=== PATIENT | female | born 1985 | race Caucasian/White ===

== ENCOUNTER 2024-04-12 23:12 | Inpatient (IN) | payer SELFPAY ==
[2024-04-13] MEDS ORDERED: Sodium Chloride 0.9% 10 ML Syringe FLUSH PRN ×2 (00:03→02:15)
[2024-04-13 00:10] LABS: BASOPHILS PERCENT AUTO 0.3 % (0.0-1.0); HEMATOCRIT 36.2 % (37.0-47.0); HEMOGLOBIN 12.4 g/dL (12.0-16.0); LYMPHOCYTES PERCENT AUTO 13.4 % (20.5-50.1); MEAN CORPUSCULAR HEMOGLOBIN 30.4 pg (27.0-34.0); MEAN CORPUSCULAR HGB CONC 34.3 g/dL (33.0-35.0); MEAN CORPUSCULAR VOLUME 88.7 fL (80-100); NEUTROPHILS PERCENT AUTO 78.3 % (42.2-75.2); PLATELET COUNT,PLT 247 10^3/uL (150-450); RED BLOOD CELL COUNT 4.08 10^6/uL (4.2-5.4); WHITE BLOOD CELL COUNT,WBC 14.8 10^3/uL (5.0-10.0)
[2024-04-13 00:21] LABS: A/G RATIO 1.2; ALBUMIN 3.7 g/dL (3.4-5.0); ANION GAP 11.5 mEq/L (7-13); BILIRUBIN TOTAL 0.5 mg/dL (0.2-1.0); BUN/CREATININE RATIO 19.1 (No establ ref range); CALCIUM 8.6 mg/dL (8.5-10.1); CREATININE 0.68 mg/dL (0.55-1.02); EST CRCL DRUG DOSING (CG) 108.01 mL/min; POTASSIUM,K 3.5 mmol/L (3.5-5.1); PROTEIN TOTAL,TP 6.8 g/dL (6.4-8.2)
[2024-04-13] MEDS: Lactated Ringers 1,000 ML IV ONE (00:27)
[2024-04-13] MEDS: Acetaminophen 500 MG Tab PO ONE ×3 (02:31→16:32)
[2024-04-13] MEDS ORDERED: LORazepam 2 MG/ML SDV IVPUSH PRN (02:39)
[2024-04-13] MEDS ORDERED: Naloxone 2 MG/2 ML Syringe IVPUSH PRN (02:40)
[2024-04-13] MEDS ORDERED: Morphine 2 MG/ML SYRINGE IVPUSH PRN (02:40)
[2024-04-13 07:16] LABS: HEMATOCRIT 30.2 % (37.0-47.0); HEMOGLOBIN 10.3 g/dL (12.0-16.0)
[2024-04-13] MEDS: Doxycycline 200 MG in Sodium Chloride 0.9% 100 ML IV ONE ×2 (10:06)
[2024-04-13] MEDS: Doxycycline 100 MG Vial ONE (11:01)
[2024-04-13] MEDS: Saccharomyces Boulardii (Probiotic) 250 MG Cap PO SCH (13:48)
[2024-04-13] MEDS ORDERED: Lidocaine 1% 30 ML SDV NERVRT ONE (17:10)
[2024-04-13] MEDS ORDERED: fentaNYL 100 MCG/2 ML SDV IV ONE (17:10)
[2024-04-13] MEDS ORDERED: Ketorolac 30 MG/ML SDV IVPUSH ONE (17:10)
[2024-04-13] MEDS ORDERED: Ondansetron 4 MG/2 ML SDV IV ONE (17:10)
[2024-04-13] MEDS ORDERED: Sodium Chloride 0.9% 1,000 ML IV ONE (17:10)
[2024-04-13] MEDS ORDERED: Propofol 200 MG/20 ML SDV IV ONE (17:10)
[2024-04-13] MEDS ORDERED: Dexamethasone 4 MG/ML SDV IV ONE (17:10)
[2024-04-13] MEDS ORDERED: Midazolam 1 MG/ML 2 ML SDV IV ONE (17:10)
[2024-04-13] MEDS: Ketorolac 30 MG/ML SDV IVPUSH ONE (17:21)
== END 2024-04-13 17:11 | disposition home or self-care (01) | DRG 770 ==
LOC: DL.ED 23:12 → DL.OB 04-13 09:01
PROVIDERS: ADMIT Student in an Organized Health Care Education/Training Program; ATTEND Student in an Organized Health Care Education/Training Program
PROC: 10D17ZZ Extraction of Products of Conception, Retained, Via Natural or Artificial Opening (ICD-10-PCS; principal; 2024-04-13 10:48)
DX: O03.4 Incomplete spontaneous abortion without complication (principal); N93.9 Abnormal uterine and vaginal bleeding, unspecified; Z3A.01 Less than 8 weeks gestation of pregnancy
CPT/HCPCS: 36415; 76815; 80053; 84702; 85014; 85018; 85025; 86900; 86901; A9270-GY; J1100; J1885; J2250; J2405; J2704; J3010; J3490; J7030; J7120